=== PATIENT | female | born 1960 | race Caucasian/White ===

== ENCOUNTER 2020-04-14 14:16 | Emergency (ER) | payer OTHER, SELFPAY ==
--- NOTE | ~2020-04-14 | CT_ITS ---
EXAMINATION: CT abdomen pelvis w con DATE: 04/14/2020 17:35 INDICATION: Right upper quadrant pain TECHNIQUE: Computed tomography (CT) of the abdomen and pelvis was performed with 100 cc intravenous c ontrast. The dose-length product was 221.88 mGy-cm. Automated exposure control and iterative reconstr uction technique were employed. COMPARISON: CT dated 04/18/2019. FINDINGS: Lung bases are unremarkable. Heart size normal. There is thickening of the gastric wall whi ch may be due to underdistention or gastritis. Common bile duct is dilated measuring 9 mm. No obstruc ting stone or mass identified. No significant vascular abnormality. No lymphadenopathy. Nonobstructive bowel gas pattern. The spleen , pancreas, adrenal glands and right kidney are unremarkable. There are small hypodense lesions of th e left kidney, likely cysts. Gallbladder is present. Small amount of free fluid in the pelvis, likely physiologic. No free air. There is grade 1 spondylolisthesis at L5-S1. No acute osseous abnormality. IMPRESSION: 1. Mildly dilated common bile duct measuring 9 mm. No definite obstructing stone or mass identified. Consider correlation with MRCP. 2: Thickening of the gastric wall which may be due to underdistention or gastritis. Reviewed, dictated and finalized at location A. [facility] IMPRESSION: 1. Mildly dilated common bile duct measuring 9 mm. No definite obstructing ston e or mass identified. Consider correlation with MRCP. 2: Thickening of the gastric wall which may be due to underdistention or gastri tis.
[2020-04-14 14:20] VITALS: BP 134/82; PULSE 79; RESP 18; TEMP 37.2; O2SAT 96
[2020-04-14 14:33] LABS: Basophils Percent Auto 0.3 % (0.2-1.2); Eosinophils Percent Auto 0.3 % (0-4.4); Hematocrit 40.7 % (37.0-47.0); Hemoglobin 13.7 g/dL (12.0-15.0); Immature Granulocyte Absolute 0.01 K/mm3 (0.00-0.031); Immature Granulocyte Percent A 0.3 % (0-0.5); Lymphocytes Absolute Auto 0.45 K/mm3 (0.9-3.2); Lymphocytes Percent Auto 13.8 % (18.3-44.2); Mean Corpuscular HGB Conc 33.7 g/dl (32-36); Mean Corpuscular Hemoglobin 33.4 pg (26-34); Mean Corpuscular Volume 99.3 fl (80-100); Mean Platelet Volume 8.8 fl (7.4-10.4); Monocytes Absolute Auto 0.4 K/mm3 (0.1-0.6); Monocytes Percent Auto 11.3 % (2.6-8.5); Neutrophils Absolute Auto 2.4 K/mm3 (1.3-6.7); Platelet Count Result 199 k/mm3 (150-375); Red Cell Distribution Width 13.1 % (11.5-14.5); White Blood Count 3.3 K/mm3 (4.5-10.0)
[2020-04-14 14:45] LABS: Alanine Aminotransferase 42 U/L (4-35); Albumin Level 4.5 g/dL (3.5-5.1); Alkaline Phosphatase 62 U/L (38-126); Anion Gap 7 mmol/L (8-16); Aspartate Amino Transferase 37 U/L (14-36); Bilirubin,Total 0.3 mg/dL (0.2-1.3); Blood Urea Nitrogen 23 mg/dL (7-17); Calcium 9.5 mg/dL (8.4-10.2); Carbon Dioxide 29 mmol/L (22-30); Chloride 102 mmol/L (98-107); Estimated CRCL calculation 97 ml/min; Estimated Glomerular Filt Rate > 60; Glucose 128 mg/dL (65-105); Lipase 74 U/L (23-300); Potassium 3.9 mmol/L (3.4-5.0); Sodium 138 mmol/L (137-145)
--- NOTE | 2020-04-14 16:17 | ED.ABDPAIN ---
HPI - Abdominal Pain General Chief Complaint: Abdominal Pain Stated Complaint: epigastric and flank pain Time Seen by Provider: 04/14/20 16:17 History of Present Illness HPI narrative: 60 yo female w/ h/o IBS presents to the ED for RUQ pain. She has had pain in the RUQ intermittently for the past few days. Feels sharp. Worse after eating. Associated with nausea. She has a fairly recent diagnosis of IBS. She has not had this type of pain before. Related Data Allergies Allergy/AdvReac Type Severity Reaction Status Date / Time No Known Allergies Allergy Verified 04/21/19 10:58 Review of Systems Review of Systems: All systems reviewed & are unremarkable except as noted in HPI and below Constitutional: Constitutional: Denies fever(s) ENT: Denies sore throat Cardiovascular: Cardiovascular: Denies chest pain Respiratory: Respiratory: Denies dyspnea Gastrointestinal: Gastrointestinal: Reports abdominal pain, Denies diarrhea, Reports nausea and Denies vomiting Genitourinary: Genitourinary: Denies hematuria, Denies nocturia and Denies dysuria Musculoskeletal: Musculoskeletal: Denies back pain Neurologic: Denies dizziness and Denies weakness PMFSH Past Medical History Medical History Anxiety Femoral hernia of right side IBS (irritable bowel syndrome) No significant past medical history SBO (small bowel obstruction) Surgical History Surgical History History of colonoscopy at the age of 51. Normal findings. History of hernia surgery repair incarcerated right femoral hernia 04/21/19 No significant past surgical history Family History Family History Mother COPD (chronic obstructive pulmonary disease) Father Lung cancer Sibling Carcinoma of colon Social History Social History Smoking status: Former smoker Second hand tobacco smoke exposure: No Alcohol intake: never Substance use: never Additional living arrangements comments: She lives with her and has 4 children. Additional occupation/education comments: Works at [employer]. Gender identity (if verbalized by the patient): Female Spiritual care concerns: No Agree to blood products: No Exam Const: General: healthy appearing, no acute distress and alert Orientation/consciousness: patient oriented x3 HENMT: Head: normal to inspection Neck: Neck: normal visual inspection and no lymphadenopathy Chest: Chest palpation & inspection: no tenderness Resp: Effort & Inspection: normal respiratory effort Auscultation: clear to auscultation bilaterally, no rales, no rhonchi and no wheezes Cardio: Jugular venous distension: no JVD Rate: regular rate Rhythm: regular rhythm Heart sounds: no murmurs GI: Inspection: non-distended GI Palp: Yes Soft to palpation and Yes Tenderness to palpation present (GI) (RUQ) Skin: General skin exam: normal color Neuro: General: patient oriented x3 and moves all extremities Speech: normal speech Extrem: General: no edema Psych: Appearance: well kempt Affect: normal affect Course Vital Signs Vital signs: Vital Signs Temperature 37.2 C 04/14/20 14:20 Pulse Rate 79 04/14/20 14:20 Respiratory Rate 18 04/14/20 14:20 Blood Pressure 134/82 04/14/20 14:20 Pulse Oximetry 96 04/14/20 14:20 Temperature 37.2 C 04/14/20 14:20 Pulse Rate 64 04/14/20 18:16 Respiratory Rate 18 04/14/20 18:16 Blood Pressure 122/78 04/14/20 18:16 Pulse Oximetry 99 04/14/20 18:16 MDM - Abdominal Pain MDM Narrative Medical decision making narrative: CT shows dilated CBD without obvious stones, and thickened gastric wall. I discussed this with Her GI specialist. He is not able to perform ERCP this facility, and given the nonspecific findings on CT he is not
[2020-04-14 16:49] LABS: Add Urine Microscopic? YES; Appearance Urine Clear (Clear); Bacteria Urine Trace /hpf; Bilirubin Urine Negative (Negative); Blood Urine Negative (Negative); Color Urine Yellow (Yellow); Glucose Urine UA Negative (Negative); Ketones Urine Negative (Negative); Leukocyte Esterase Ur Negative LEU/UL (Negative); Mucus Urine Rare /lpf; Nitrate Urine Negative (Negative); Protein Urine 2+ mg/dL (Negative); Specific Grav Ur 1.019 (1.001-1.035); Urobilinogen Urine Negative mg/dL (<2.0); WBC Urine 0-3 /hpf
[2020-04-14 18:16] VITALS: BP 122/78; PULSE 64; RESP 18; O2SAT 99
== END 2020-04-14 18:17 | disposition home or self-care (01) ==
PROVIDERS: Emergency Provider Emergency Medicine; PCP Internal Medicine
DX: R10.13 Epigastric pain (principal); K58.9 Irritable bowel syndrome, unspecified; Z87.891 Personal history of nicotine dependence; R93.5 Abnormal findings on diagnostic imaging of other abdominal regions, including retroperitoneum
CPT/HCPCS: 36415; 74177; 80053; 81001; 83690; 85025; 99284; Q9967